=== PATIENT | male | born 1950 | race Caucasian/White ===

== ENCOUNTER 2016-06-22 21:53 | Emergency (ER) | payer MEDICARE, BC | END 2016-06-23 02:22 | disposition home or self-care (01) | LOC: ER 21:53 | DX: S86.012A Strain of left Achilles tendon, initial encounter (principal); G89.11 Acute pain due to trauma; X50.9XXA Other and unspecified overexertion or strenuous movements or postures, initial encounter; Y92.019 Unspecified place in single-family (private) house as the place of occurrence of the external cause; C34.90 Malignant neoplasm of unspecified part of unspecified bronchus or lung ==